=== PATIENT | female | born 1965 | race Hispanic/Latino ===

== ENCOUNTER → 2018-06-28 | Outpatient (CLI) | payer OTHER ==
[~2018-06-28] MED LIST: LEVOTHYROXINE100 MCG PO
--- NOTE | 2018-06-28 17:17 | Diagnostic Imaging Report ---
Exam: Abdominal film Clinical History: History of kidney stone, left side Comparison: None. DISCUSSION: Frontal view of the abdomen shows a nonobstructive bowel gas pattern with mild/moderate/marked amount of retained stool.There are no dilated, air-filled loops of bowel. 4 mm radiopaque density projecting over the mid to inferior aspect of the right renal shadow. No radiopaque densities project over the left renal shadow, expected course of the ureters or bladder. No acute bone abnormality. IMPRESSION: 1. 4 mm nonobstructing calculus in the right kidney. No radiopaque densities project over the left renal shadow, expected course of the ureters or bladder. The staff physician below has personally reviewed this exam on the date of dictation. Signed by: Dr. Jaydon Chan M.D. on 06/28/2018 5:14 PM
== END ==
LOC: RAD 16:29
PROVIDERS: ATTEND Urology
DX: N20.0 Calculus of kidney (principal)
CPT/HCPCS: 74018

== ENCOUNTER → 2018-12-26 | Outpatient (CLI) | payer BC ==
--- NOTE | 2018-12-26 09:28 | Diagnostic Imaging Report ---
EXAM: US RENAL RETROPERITONEAL COMP DATE: 12/26/2018 7:44 AM INDICATION: ^[id number] ^[id number] ^CALCULUS OF KIDNEY COMPARISON: None FINDINGS: Grayscale and color flow Doppler ultrasound the kidneys and urinary bladder was performed. Right kidney: 12.1 x 4.7 x 5.2 cm. Cortical thickness 2.0 cm. Cortical echogenicity normal. There is mild fullness of the right renal collecting system. A lower pole cyst measures 2.0 x 1.3 x 1.9 cm. No intrarenal echogenic foci are seen to suggest calculi. Left kidney: 11.7 x 5.3 x 6.1 cm. Cortical thickness 1.5 cm. Cortical echogenicity normal. No hydronephrosis. A mid left renal cyst measures 1.3 x 1.0 x 1.4 cm. No intrarenal echogenic foci are seen to suggest calculi. Urinary bladder: Unremarkable appearance. Bilateral ureteral jets are noted. Volume 168 cc. IMPRESSION: 1. No hydronephrosis. Very mild nonspecific fullness of the right renal collecting system. Bilateral renal cysts. 2. There are no echogenic foci related to the renal collecting systems to suggest calculi. Small calculi might be obscured on ultrasound examination, however. 3. Unremarkable appearance of bladder. Bilateral ureteral jets are seen. Signed by: Dr. Yoav Bunn M.D. on 12/26/2018 9:25 AM
== END ==
LOC: US 07:29
PROVIDERS: ATTEND Urology
DX: N20.0 Calculus of kidney (principal)
CPT/HCPCS: 76770

== ENCOUNTER → 2019-06-22 | Outpatient (CLI) | payer BC | LOC: MAMMO 16:23 | PROVIDERS: ATTEND Internal Medicine | DX: Z12.31 Encounter for screening mammogram for malignant neoplasm of breast (principal) | CPT/HCPCS: 77067 ==

== ENCOUNTER → 2019-07-29 | Day surgery (SDC) | payer BC ==
[~2019-07-29] MED LIST changes: +ENBREL50 MG/1 ML PO; +HYOSCYAMINE 0.125 MG TAB ONE; +PROPOFOL IV EMULSION 10 MG/ML 50 ML VIAL ONE
--- NOTE | 2019-07-29 23:30 | Operative Report ---
DATE OF PROCEDURE: 07/29/2019 SURGEON: Remy Lockwood MD PROCEDURE: Colonoscopy with polypectomy. INDICATION FOR COLONOSCOPY: Colorectal cancer screening. MEDICATIONS: The patient was done under MAC, please see anesthesiologist's note. DESCRIPTION OF THE PROCEDURE: With the patient in left lateral decubitus position, a flexible fiberoptic Olympus colonoscope was inserted into the rectum with ease and advanced all the way to the cecum. It was then withdrawn slowly. Mucosa overlying the cecum, ascending colon, and transverse colon appeared to be within normal limits. One polyp was removed per cold biopsy forceps from the proximal descending colon. One polyp was hot biopsied in the sigmoid colon. Two polyps were hot biopsied in the rectum. The scope was then retroflexed into the distal rectum and small internal hemorrhoids were noted, none of which was actively bleeding. The scope was then straightened out and it was subsequently withdrawn. The patient tolerated procedure well. IMPRESSION: 1. Descending colon polyp, cold biopsied. 2. Sigmoid colon polyp, hot biopsied. 3. Rectal polyps x2, hot biopsied. 4. Internal hemorrhoids, none actively bleeding. PLAN: Follow up histology. Initiate high-fiber, low-fat diet. Initiate high-fiber supplement. The patient might benefit from a followup colonoscopy in three years. Remy Lockwood MD [facility] [place] /[id number] cc: Keren Hernandez MD
--- OUTSIDE RECORDS SUMMARY | 2019-08-04 12:03 | XMS REPORT ---
Author Author [facility] Organization [facility] Address Unknown Phone Unavailable Care Team Providers Care Maintenance Representative Name Role Phone PINA HANEY Unavailable Unavailable Temitope BURKS Unavailable Unavailable LYNDSEY RIVAS Unavailable Unavailable Problems This patient has no known problems. Allergies, Adverse Reactions, Alerts This patient has no known allergies or adverse reactions. Medications This patient has no known medications. Results Test Description Test Time Test Comments Text Results Atomic Results Result Comments MAMMOGRAPHY DIGITAL SCR BILAT 2019-06-22 17:01:00 [place] [address] Patient Name: JERAD MARCH MR #: [id number] : 1965 Age/Sex: 54/F Req #: [id number] [facility] Physician: Ordered by: PINA HANEY MD Report #: [id number] Location: MAMMO Room/Bed: Procedure: [id number] MG/MAMMOGRAPHY DIGITAL SCR BILAT Exam Date: 06/22/19 Exam Time: 1633 REPORT STATUS: Signed #[id number] - MGSCRBIL #BILATERAL DIGITAL SCREENING MAMMOGRAM WITH CAD: 06/22/2019 CLINICAL: Routine screening. Comparison is made to exams dated: 06/10/2017 mammogram, 10/18/2013 mammogram and 09/20/2013 mammogram - [facility]. The tissue of both breasts is heterogeneously dense. This may lower the sensitivity of mammography. Current study was also evaluated with a Computer Aided Detect ion (CAD) system. There are benign vascular calcifications and calcifications in both breasts. There also are benign lymph nodes in both breasts. No significant masses, calcifications, or other findings are seen in either breast. There has been no significant interval change. IMPRESSION: BENIGN There is no mammographic evidence of malignancy. A 1 year screening mammogram is recommended. The patient will be notified by letter of the results. CARRILLO chino/marisol:06/28/2019 14:49:21 [employer]: Shanti LUNA(Nadir)(Karina), [facility] letter sent: Compared to Prior B9 Mammogram BI-RADS: 2 Benign Dictated By: CARRILLO SHERIFF MD 48 Transcribed By: MARISOL on 06/28/191448 COPY TO: PINA HANEY MD US RENAL RETROPERITONEAL COMP 2018-12-26 09:20:00 [place] [address] Patient Name: JERAD MARCH MR #: [id number] : 1965 Age/Sex: 53/F Req #: [id number] Adm Physician: Ordered by: CLARENCE BURKS MD Report #: [id number] Location: Room/Bed: Procedure: [id number] US/US RENAL RETROPERITONEAL COMP Exam Date: 12/26/18 Exam Time: 0807 REPORT STATUS: Signed EXAM: US RENAL RETROPERITONEAL COMP DATE: 12/26/2018 7:44 AM INDICATION: [id number] CALCULUS OF KIDNEY COMPARISON: None FINDINGS: Grayscale and color flow Doppler ultrasound the kidneys and urinary bladder was performed. Right kidney: 12.1 x 4.7 x 5.2 cm. Cortical thickness 2.0 cm. Cortical echogenicity normal. There is mild fullness of the right renal collecting system. A lower pole cyst measures 2.0 x 1.3 x 1.9 cm. No intrarenal echogenic foci are seen to suggest calculi. Left kidney: 11.7 x 5.3 x 6.1 cm. Cortical thickness 1.5 cm. Cortical echogenicity normal. No hydronephrosis. A mid left renal cyst measures 1.3 x 1.0 x 1.4 cm. No intrarenal echogenic foci are seen to suggest calculi. Urinary bladder: Unremarkable appearance. Bilateral ureteral jets are noted. Volume 168 cc. IMPRESSION: 1. No hydronephrosis. Very mild nonspecific fullness of the right renal collecting system. Bilateral renal cysts. 2. There are no echogenic foci related to the renal collecting systems to suggest calculi. Small calculi might be obscured on ultrasound examination, however. 3. Unremarkable appearance of bladder. Bilateral ureteral jets are seen. Signed by: Dr. Rachael Reyes M.D. on 12/26/2018 9:25 AM Dictated By: RACHAEL REYES MD 4 Transcribed By: KRISSY on 12/26/18924 COPY TO: CLARENCE BURKS MD [address] ([facility]) 2018-06-28 17:12:00 [place] [address] Patient Name: JERAD MARCH MR #: [id number] : 1965 Age/Sex: 53/F Req #: [id number] Adm Physician: Ordered by: CLARENCE BURKS MD Report #: [id number] Location: [facility] Room/Bed: Procedure: [id number] DX/ABDOMEN-1VIEW (KUB) Exam Date: Exam Time: REPORT STATUS: Signed Exam: Abdominal film Clinical History: History of kidney stone, left side Comparison: None. DISCUSSION: Frontal view of the abdomen shows a nonobstructive bowel gas pattern with mild/moderate/marked amount of retained stool.There are no dilated, air-filled loops of bowel. 4 mm radiopaque density projecting over the mid to inferior aspect of the right renal shadow. No radiopaque densities project over the left renal shadow, expe cted course of the ureters or bladder. No acute bone abnormality. IMPRESSION: 1. 4 mm nonobstructing calculus in the right kidney. No radiopaque densities project over the left renal shadow, expected course of the ureters or bladder. The staff physician below has personally reviewed this exam on the date of dictation. Signed by: Dr. Shelia Chan M.D. on 06/28/2018 5:14 PM Dictated By: SHELAI CHAN MD 13 Transcribed By: KRISSY on 06/28/181713 COPY TO: CLARENCE BURKS MD MAMMOGRAPHY DIGITAL SCR [place] [address] Patient Name: JERAD MARCH MR #: [id number] : 1965 Age/Sex: 52/F Req #: [id number] Adm Physician: Ordered by: LYNDSEY RIVAS MD Report #: [id number] Location: [facility] Room/Bed: Procedure: [id number] MG/MAMMOGRAPHY DIGITAL SCR BILAT Exam Date: 06/10/17 Exam Time: 1140 REPORT STATUS: Signed #[id number] - MGSCRBIL #BILATERAL DIGITAL SCREENING MAMMOGRAM WITH CAD: 06/10/2017 CLINICAL: Routine screening. Comparison is made to exams dated: 10/18/2013 mammogram, 09/20/2013 mammogram - [facility] and 06/18/2012 mammogram - [facility]. Current study contains 4 films. The tissue of both breasts is heterogeneously dense. This may lower the sensitivity of mammography. Current study was also evaluated with a Computer Aided Detection (CAD) system. There are benign calcifications in both breasts. No significant masses, calcifications, or other findings are seen in either breast. There has been no significant interval change. IMPRESSION: BENIGN There is no mammographic evidence of malignancy. A 1 year screening mammogram is recommended. The patient will be notified by letter of the results. Anil street/marisol:06/19/2017 12:03:54 [employer]er: Shanti LUNA(R)(M), [facility] letter sent: Compared to Prior B9 Mammogram BI- RADS: 2 Benign Dictated By: ANIL ALLAN DO 1203 Transcribed By: MARISOL on 06/19/17 1203 COPY TO: LYNDSEY RIVAS MD
== END | disposition home or self-care (01) ==
LOC: OR 11:45
PROVIDERS: ATTEND Internal Medicine Gastroenterology
DX: Z12.11 Encounter for screening for malignant neoplasm of colon (principal); K63.5 Polyp of colon; K62.1 Rectal polyp; K64.8 Other hemorrhoids; E03.9 Hypothyroidism, unspecified; K21.9 Gastro-esophageal reflux disease without esophagitis; N20.0 Calculus of kidney
CPT/HCPCS: 45380; 45384; J2704